=== PATIENT | male | born 1945 | race Caucasian/White ===

== ENCOUNTER 2017-01-09 16:36 | Inpatient (IN) | payer MEDICARE, OTHER, SELFPAY ==
[~2017-01-09] VITALS: Ht 170.2 cm; Wt 78.5 kg
[2017-01-09] MEDS ORDERED: thyroid med (16:44)
[2017-01-09] MEDS ORDERED: NEUR300C PO (16:44)
[2017-01-09] MEDS ORDERED: TETANUS/DIPHTHERIA TOX ADSORB ADULT 0.5ML SYR/VIAL (90714) IM ONE (17:30)
[2017-01-09 17:49] LABS: BASO % 0.4 % (0.0-1.0); EOS % 0.7 % (0.0-3.0); LARGE UNSTAINED CELL # 0.1 K/mm3 (0.0-0.4); LARGE UNSTAINED CELL % 1.3 % (0.0-4.0); LYMPH # 0.7 K/mm3 (1.5-4.5); LYMPH % 9.9 % (24.0-44.0); MEAN CORPUSCULAR HEMOGLOBIN 31.7 pg (27.0-33.0); MEAN CORPUSCULAR HGB CONC 34.9 g/dl (32.0-36.5); MEAN CORPUSCULAR VOLUME 90.7 fl (80.0-96.0); MONO # 0.4 K/mm3 (0.0-0.8); MONO % 5.3 % (0.0-5.0); NEUTROPHILS # 5.5 K/mm3 (1.8-7.7); NEUTROPHILS % 82.5 % (36.0-66.0); PLATELET COUNT, AUTOMATED 150 k/mm3 (150-450); RED CELL DISTRIBUTION WIDTH 13.6 % (11.5-14.5); WHITE BLOOD COUNT 6.7 K/mm3 (4.0-10.0)
[2017-01-09] MEDS ORDERED: MORPHINE 2 MG/ML 1ML SYRINGE IV ONE (18:00)
[2017-01-09 18:09] LABS: INR 1.05
[2017-01-09 18:15] LABS: ALKALINE PHOSPHATASE 54 U/L (45-117); ALT/SGPT 35 U/L (12-78); AMYLASE 51 U/L (25-115); AST/SGOT 31 U/L (15-37); BILIRUBIN,DIRECT 0.2 MG/DL (0.0-0.2); BILIRUBIN,TOTAL 0.5 MG/DL (0.2-1.0); BLOOD UREA NITROGEN 15 MG/DL (7-18); CALCIUM LEVEL 7.9 MG/DL (8.8-10.2); CARBON DIOXIDE LEVEL 24 MEQ/L (21-32); CHLORIDE LEVEL 111 MEQ/L (98-107); CREATININE FOR GFR 1.28 MG/DL (0.70-1.30); GLUCOSE, FASTING 87 MG/DL (83-110); TOTAL PROTEIN 6.5 GM/DL (6.4-8.2)
[2017-01-09] MEDS ORDERED: ISOVUE-370 76% 100ML VIAL (Q9967) As Ordered ONE (18:33)
[2017-01-09] MEDS ORDERED: NS 1,000 ML IV SCH (18:57)
--- NOTE | 2017-01-09 19:00 | REP ---
Clinical: Trauma . Findings: Age-related atrophy and microvascular ischemic changes are appreciated. The ventricles and sulci are symmetric. Saavedra-white differentiation is maintained. There is no evidence for acute intracranial hemorrhage, mass/mass effect, pathology or infarction. No extra-axial fluid collection. Calvarium is intact. Paranasal sinuses and mastoid air cells are clear. Impression: Age related atrophy and microvascular ischemic changes. No acute intracranial hemorrhage, infarction, or mass/mass effect. No evidence for trauma/injury. Signed by Jamar Roberson MD 01/09/2017 06:52 P
--- NOTE | 2017-01-09 19:03 | REP ---
Clinical: Trauma. Technique: Axial noncontrast images from the skull base to the thoracic inlet with coronal and sagittal re-formations. Findings: Marked, advanced multilevel degenerative disc osteophyte complexes noted throughout the cervical spine from the atlantoaxial level through C7-T1. Findings include endplate sclerosis/heterogeneity with disc space narrowing, scattered chronic cystic changes, osteophytosis, and facet arthropathy. Straightening of normal lordosis is appreciated and nonspecific. No acute fracture / compression injury or subluxation is identified. The paravertebral soft tissues are within normal limits. Impression: Marked, advanced multilevel degenerative disc osteophyte complexes. No evidence for acute fracture / compression injury or subluxation. Signed by Jamar Roberson MD 01/09/2017 06:55 P
--- NOTE | 2017-01-09 19:15 | REP ---
Clinical: Trauma. Technique: Axial noncontrast images from T11 through mid sacrum with coronal and sagittal re-formations. Findings: Alignment and lordosis maintained. No acute fracture / compression injury or subluxation noted. Advanced multilevel degenerative changes include osteophytosis, endplate sclerosis/irregularity with disc space narrowing and obliteration as well as hypertrophic facet changes. Findings are most pronounced at the L2-3, L3-4, and L4-5 levels. Canal stenosis at the L2-3 level based on chronic changes including posterior osteophyte cannot be excluded. Posterior elements and spinous processes are intact. Paravertebral soft tissues are within normal limits. Incidental note is made of a 2.6 cm left renal hypodensity likely representing cyst. Impression: Advanced multilevel degenerative disc osteophyte complexes. No evidence for acute trauma/injury. No evidence for acute fracture / compression injury or subluxation. Signed by Jamar Roberson MD 01/09/2017 07:06 P
--- NOTE | 2017-01-09 19:17 | REP ---
Clinical: Trauma. Technique: Axial noncontrast images from C4 through L1 with coronal and sagittal re-formations. Findings: Moderate to early advanced multilevel degenerative changes are appreciated including exaggerated kyphosis, bridging osteophytes and disc space narrowing primarily noted through the mid to lower thoracic spine. There is no evidence for acute fracture / compression injury or subluxation. The spinal canal is patent and within normal limits. The posterior elements and spinous processes are intact. The paravertebral soft tissues are normal incidental note is made of left renal hypodensity consistent with cyst. Impression: Moderate to early advanced multilevel degenerative changes. No evidence for acute thoracic spine pathology or trauma/injury. Signed by Jamar Roberson MD 01/09/2017 07:08 P
--- NOTE | 2017-01-09 19:21 | REP ---
Clinical: Trauma. Technique: Axial contrast enhanced images from the thoracic inlet to the upper abdomen using 100 ml Isovue 370 intravenous contrast material with coronal and sagittal re-formations. Findings: The bilateral lung jennings demonstrate chronic, age-related interstitial changes and minimal posterior basilar dependent changes. No consolidation/contusion, pleural effusion or pneumothorax. Tracheobronchial tree is patent. The mediastinum demonstrates normal thoracic aorta and heart/pericardium. There is no evidence for mediastinal trauma. No axillary, hilar, or mediastinal adenopathy is appreciated. The thyroid gland is enlarged and diffusely heterogeneous. Osseous structures demonstrate age-related degenerative changes without evidence for acute pathology or trauma/injury. Limited evaluation of the upper abdomen demonstrates normal bilateral adrenal glands and evidence for prior cholecystectomy. Impression: 1. Chronic changes. 2. Heterogeneous enlarged thyroid gland consistent with multinodular goiter. 3. No evidence for acute mediastinal or pleuroparenchymal pathology or trauma/injury. Signed by Jamar Roberson MD 01/09/2017 07:13 P
--- NOTE | 2017-01-09 19:24 | REP ---
Clinical: Trauma. Technique: Axial contrast enhanced images from the lung bases to the pubic symphysis using 100 ml Isovue 370 intravenous contrast material with coronal and sagittal re-formations. Findings: Lung bases demonstrate minimal posterior basilar dependent changes. Visualized portions of the heart and pericardium are normal. There is no evidence for solid organ injury. Liver, spleen, pancreas, bilateral adrenal glands and kidneys are relatively normal. Incidental 2.7 cm left renal cyst noted. The patient is status post cholecystectomy. The enteric system is without obstruction or acute inflammatory process. Diffuse diverticulosis noted without acute diverticulitis. Normal terminal ileum and appendix identified in the right lower quadrant. Pelvis demonstrates normal bladder and findings to suggest prior prostatectomy. Small fat containing left inguinal hernia. No ascites. No free air. No adenopathy. Abdominal aorta without aneurysm or dissection. No evidence for vascular injury. Musculoskeletal structures demonstrate degenerative changes without focal osseous abnormality or trauma/injury. Impression: 1. No evidence for acute trauma/injury or pathology. 2. 2.7 cm left renal cyst. 3. Diverticulosis without acute diverticulitis. 4. Fat containing left inguinal hernia. 5. Evidence for prior prostatectomy and cholecystectomy. Signed by Jamar Roberson MD 01/09/2017 07:16 P
[2017-01-09 19:28] LABS: ALBUMIN 3.7 GM/DL (3.2-5.2); ALBUMIN/GLOBULIN RATIO 1.32 (1.00-1.93); ANION GAP 10 MEQ/L (8-16); SODIUM LEVEL 145 MEQ/L (136-145)
[2017-01-09] MEDS ORDERED: LEVO50TA45 PO (21:13)
[2017-01-09 23:50] VITALS: BP 175/80
[2017-01-10] MEDS: LR 1,000 ML IV SCH ×2 (00:18→08:09)
[2017-01-10] MEDS: GABAPENTIN 300 MG CAP PO SCH ×2 (00:18→20:10)
[2017-01-10] MEDS: MORPHINE 2 MG/ML 1ML SYRINGE IV PRN ×2 (00:18→08:11)
[2017-01-10] MEDS: NORCO, ANEXSIA 5/325MG TABLET (HYDROcodone/ACETAMINOPHEN) PO PRN ×3 (01:27→12:57)
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
[2017-01-10] MEDS: LEVOTHYROXINE 50MCG TABLET (0.05MG) PO SCH (05:39)
[2017-01-10 06:00] VITALS: BP 184/80
--- NOTE | 2017-01-10 07:05 | ED PDOC ---
Post-Departure Follow-Up certified letter sent regarding radiology report Val Pagan MD Jan 10, 2017 07:05
[2017-01-10 07:16] LABS: ALBUMIN 3.5 GM/DL (3.2-5.2); ALBUMIN/GLOBULIN RATIO 1.13 (1.00-1.93); BILIRUBIN,TOTAL 0.8 MG/DL (0.2-1.0); CREATININE FOR GFR 1.37 MG/DL (0.70-1.30); GLOMERULAR FILTRATION RATE 54.2 (>42); TOTAL PROTEIN 6.6 GM/DL (6.4-8.2)
[2017-01-10] MEDS: ONDANSETRON 4MG/2ML VIAL (J2405) IV PRN (08:10)
[2017-01-10] MEDS: IBUPROFEN 400 MG TAB PO PRN ×2 (08:10→15:54)
[2017-01-10 10:00] VITALS: BP 117/61
[2017-01-10] MEDS: ACETAMINOPHEN TAB 650MG DOSE (2X325MG) PO PRN ×2 (12:57→21:47)
[2017-01-10 14:00] VITALS: BP 127/64
[2017-01-10 16:00] VITALS: BP 127/64
[2017-01-10 18:00] VITALS: BP 122/68
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
[2017-01-10 22:00] VITALS: BP 135/65
[2017-01-11] MEDS: LR 1,000 ML IV SCH ×2 (00:17→12:08)
[2017-01-11 02:00] VITALS: BP 129/64
[2017-01-11] MEDS: LEVOTHYROXINE 50MCG TABLET (0.05MG) PO SCH (05:24)
[2017-01-11] MEDS: IBUPROFEN 400 MG TAB PO PRN ×3 (05:25→18:32)
[2017-01-11 06:00] VITALS: BP 146/76
--- NOTE | 2017-01-11 08:18 | ECGEPIP ---
Stationary ECG Study [facility] - ED Test Date: 2017-01-09 Pat Name: BRENDON BARKER Department: Room: [place] [address] Gender: M Deputy Jailer: rn : 1945 Requested By: MICHAEL Campos Order Number: [id number] Reading MD: Val Pagan Measurements Intervals [place] Rate: 77 P: 45 NC: 167 QRS: -19 QRSD: 94 T: 17 QT: 367 QTc: 416 Interpretive Statements SINUS RHYTHM LOW QRS VOLTAGE IN PRECORDIAL LEADS DELAYED R PROGRESSION NO PRIOR FOR COMPARISON Electronically Signed On 01-10-2017 7:35:09 EDT by Val Pagan
[2017-01-11 09:17] LABS: ALBUMIN 3.2 GM/DL (3.2-5.2); ALBUMIN/GLOBULIN RATIO 1.07 (1.00-1.93); ALKALINE PHOSPHATASE 50 U/L (45-117); ALT/SGPT 43 U/L (12-78); ANION GAP 9 MEQ/L (8-16); AST/SGOT 60 U/L (15-37); BILIRUBIN,TOTAL 0.6 MG/DL (0.2-1.0); BLOOD UREA NITROGEN 17 MG/DL (7-18); CALCIUM LEVEL 7.9 MG/DL (8.8-10.2); CARBON DIOXIDE LEVEL 27 MEQ/L (21-32); CHLORIDE LEVEL 107 MEQ/L (98-107); CREATININE FOR GFR 1.25 MG/DL (0.70-1.30); GLOMERULAR FILTRATION RATE > 60.0 (>42); GLUCOSE, FASTING 91 MG/DL (83-110); POTASSIUM SERUM 4.2 MEQ/L (3.5-5.1); SODIUM LEVEL 143 MEQ/L (136-145); TOTAL PROTEIN 6.2 GM/DL (6.4-8.2)
[2017-01-11] MEDS: NORCO, ANEXSIA 5/325MG TABLET (HYDROcodone/ACETAMINOPHEN) PO PRN (09:31)
[2017-01-11 10:00] VITALS: BP 181/89
[2017-01-11] MEDS: CYCLOBENZAPRINE 5MG TABLET PO SCH ×2 (13:14→20:48)
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
[2017-01-11 14:00] VITALS: BP 151/86
[2017-01-11] MEDS: ONDANSETRON 4MG/2ML VIAL (J2405) IV PRN (15:58)
[2017-01-11] MEDS: MORPHINE 2 MG/ML 1ML SYRINGE IV PRN ×2 (15:59→20:49)
[2017-01-11] MEDS: GABAPENTIN 300 MG CAP PO SCH (20:47)
[2017-01-11 22:00] VITALS: BP 164/84
[2017-01-12 02:00] VITALS: BP 135/65
[2017-01-12] MEDS: CYCLOBENZAPRINE 5MG TABLET PO SCH ×2 (05:32→14:06)
[2017-01-12] MEDS: LEVOTHYROXINE 50MCG TABLET (0.05MG) PO SCH (05:32)
[2017-01-12] MEDS: IBUPROFEN 400 MG TAB PO PRN ×2 (05:39→13:00)
[2017-01-12 06:00] VITALS: BP 142/83
[2017-01-12 10:00] VITALS: BP 140/78
[2017-01-12] MEDS: MORPHINE 2 MG/ML 1ML SYRINGE IV PRN ×3 (10:28→20:01)
[2017-01-12 14:00] VITALS: BP 154/79
[2017-01-12] MEDS ORDERED: PERCOCET 5MG/325MG TAB PO PRN (15:45)
[2017-01-12] MEDS: PERCOCET 5MG/325MG TAB PO PRN (16:20)
[2017-01-12 18:00] VITALS: BP 155/79
[2017-01-12] MEDS: GABAPENTIN 300 MG CAP PO SCH (20:00)
[2017-01-12] MEDS: DOCUSATE SODIUM 100 MG CAP PO SCH (20:00)
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
[2017-01-12 22:00] VITALS: BP 132/80
[2017-01-12] MEDS: CYCLOBENZAPRINE 10 MG TAB PO SCH (22:57)
[2017-01-13 02:00] VITALS: BP 142/60
[2017-01-13] MEDS: CYCLOBENZAPRINE 10 MG TAB PO SCH (05:30)
[2017-01-13] MEDS: LEVOTHYROXINE 50MCG TABLET (0.05MG) PO SCH (05:30)
[2017-01-13 06:00] VITALS: BP 110/58
[2017-01-13] MEDS: MORPHINE 2 MG/ML 1ML SYRINGE IV PRN (07:26)
[2017-01-13] MEDS ORDERED: PERCOCET PO (08:43)
[2017-01-13] MEDS ORDERED: COLA100C5 PO (08:43)
[2017-01-13] MEDS ORDERED: CYCL10TA PO (08:43)
[2017-01-13] MEDS: DOCUSATE SODIUM 100 MG CAP PO SCH (09:00)
[2017-01-13] MEDS: PERCOCET 5MG/325MG TAB PO PRN (11:43)
--- NOTE | 2017-01-14 12:45 | IPN ---
DATE: 01/13/2017 The patient reports this morning that he is feeling much better. After we started the Percocet and increased the dose of the Flexeril, he has had much less discomfort. He reports that he has been able to do some of his gentle range of motion exercises as recommended by physical therapy with much less discomfort. He was able to sit on the side of the bed. He has been eating well. Vital signs: The patient has remained afebrile for the last 24 hours. His pulse has been in the 60s with a blood pressure most recently of 110/58 and a room air pulse oximetry of 96. Intake and output from 01/12/2017 was 840 recorded in and 650 of urine out. Physical exam shows very pleasant man lying quietly in the hospital bed. He is not wearing his soft cervical collar right now. He appears comfortable. Heart and lung exams are unremarkable. Abdomen is soft and nontender. He sits up on the side of the bed without any assistance. I examined the back of his neck. There is no definite bruising. There is no definite swelling of his posterior neck. He has no new laboratory studies or imaging. Impression is improved pain control with the Percocet and Flexeril. He reports that he feels comfortable enough to be discharged today. He has a relative coming up about noon to take him back to [place]. Plan: Patient was counseled to followup with his physician on return home and he indicates that he has an appointment with a member of the local orthopedic group on 01/18/2017. I will provide him prescriptions for Flexeril and Percocet and Colace. I advised him to be cautious of constipation while taking the Percocet and to use the Colace. If he has not had a bowel movement within the next day or two, he should consider taking some Milk of Magnesia or MiraLAX. He can eat as he desires. He can shower ad evelin. He should continue some topical antibiotic to his open abrasions. His has apparently obtained copies of his x-rays to take with him. FADY
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
== END 2017-01-13 13:05 | disposition home or self-care (01) | DRG 948 ==
LOC: M ED 16:36 → EDBD 16:36 → M ED INP 21:37 → M MS5PR 23:45 → OBSVTOIN 01-11 16:43
PROVIDERS: ADMIT Surgery; ATTEND Surgery
DX: G89.11 Acute pain due to trauma (principal); G62.9 Polyneuropathy, unspecified; M54.2 Cervicalgia; E03.9 Hypothyroidism, unspecified; V48.1XXA Car passenger injured in noncollision transport accident in nontraffic accident, initial encounter; Y99.8 Other external cause status; M25.512 Pain in left shoulder; M54.6 Pain in thoracic spine; M25.511 Pain in right shoulder; Y92.410 Unspecified street and highway as the place of occurrence of the external cause; Z90.49 Acquired absence of other specified parts of digestive tract; Z96.651 Presence of right artificial knee joint; Z85.46 Personal history of malignant neoplasm of prostate; Z79.899 Other long term (current) drug therapy